=== PATIENT | female | born 1995 | race African-American/Black ===

== ENCOUNTER 2024-02-24 18:15 | Inpatient (IN) | payer OTHER ==
[2024-02-24] MEDS: ELECTROLYTE-148 SOLN 1,000 ML IV SCH (19:50)
[2024-02-24 19:52] VITALS: BMI 24.3
[2024-02-24 20:06] LABS: BASO % 0.3 % (0-2.0); HEMATOCRIT 36.5 % (32.4-45.2); HEMOGLOBIN 11.6 GM/dL (10.7-15.3); LYMPH % 17.5 % (8-40); MCH 24.5 pg (25.7-33.7); MCHC 31.8 g/dl (32.0-36.0); MEAN CELL VOLUME 77.1 fl (80-96); MEAN PLT VOLUME 7.9 fl (7.5-11.1); MONO % 7.2 % (3.8-10.2); PLATELET COUNT 332 10^3/uL (134-434); RBC 4.73 M/mm3 (3.60-5.2); RDW 15.4 % (11.6-15.6)
[2024-02-24 20:16] LABS: INR 0.92 (0.83-1.09); PROTHROMBIN TIME (PATIENT) 10.4 SEC (9.7-13.0)
[2024-02-24 20:19] LABS: ACTIVATED PTT 26.6 SECONDS (25.2-36.5)
[2024-02-24] MEDS ORDERED: FENTANYL/BUPIVACAINE/NS/PF - PCEA - 50 ML DISP.SYRIN EP ONE (20:23)
[2024-02-24 20:24] LABS: POTASSIUM 4.2 mmol/L (3.5-5.1)
[2024-02-24 20:25] LABS: CALCIUM 9.5 mg/dL (8.5-10.1)
[2024-02-24 20:26] LABS: BLOOD UREA NITROGEN 9.2 mg/dL (7-18)
[2024-02-24 20:29] LABS: CREATININE 0.7 mg/dL (0.55-1.3)
[2024-02-24] MEDS ORDERED: NALOXONE HCL 0.4 MG/ML VIAL IVPUSH PRN (20:30)
[2024-02-24] MEDS ORDERED: ELECTROLYTE-148 SOLN 1,000 ML IV SCH (20:30)
[2024-02-24] MEDS: FENTANYL/BUPIVACAINE/NS/PF - PCEA - 50 ML DISP.SYRIN EP SCH (20:46)
[2024-02-25] MEDS ORDERED: FENTANYL/BUPIVACAINE/NS/PF - PCEA - 50 ML DISP.SYRIN EP ONE (00:33)
[2024-02-25] MEDS ORDERED: OXYTOCIN 20 UNITS in 0.9% NS 20 UNIT/1,000 ML INFUS.BAG IV ONE (00:39)
[2024-02-25] MEDS ORDERED: LIDOCAINE HCL/PF 2% SDV 5ML VIAL ONE ×2 (01:29→02:02)
[2024-02-25] MEDS ORDERED: FENTANYL CITRATE/PF 50 MCG/ML VIAL ONE ×2 (01:29→02:13)
[2024-02-25] MEDS ORDERED: ceFAZolin SODIUM 1 GM VIAL ONE (02:06)
[2024-02-25] MEDS ORDERED: METOCLOPRAMIDE HCL INJECTION 10 MG/2 ML VIAL ONE (02:06)
[2024-02-25] MEDS ORDERED: TRANEXAMIC ACID 1000 MG/10 ML VIAL ONE ×2 (02:06→02:57)
[2024-02-25] MEDS ORDERED: KETOROLAC TROMETHAMINE 30 MG/1 ML VIAL ONE (02:06)
[2024-02-25] MEDS ORDERED: DEXAMETHASONE SOD PHOSPHATE 4 MG/1 ML VIAL ONE (02:06)
[2024-02-25] MEDS ORDERED: OXYTOCIN 10 UNITS/ML VIAL ONE ×2 (02:06→02:56)
[2024-02-25] MEDS ORDERED: ONDANSETRON 4 MG/2 ML VIAL ONE (02:06)
[2024-02-25] MEDS ORDERED: morphine SULFATE/PF 1 MG/2 ML (2cc Syringe - QUVA) ONE (02:09)
[2024-02-25] MEDS ORDERED: METHYLERGONOVINE MALEATE 0.2 MG/1 ML AMP IM PRN (03:24)
[2024-02-25] MEDS ORDERED: ACETAMINOPHEN 1000 MG/100 ML BAG IVPB PRN (03:26)
[2024-02-25] MEDS: OXYTOCIN 20 UNITS in 0.9% NS 20 UNIT/1,000 ML INFUS.BAG IV SCH (03:30)
[2024-02-25] MEDS: CITRIC ACID/SODIUM CITRATE 30 ML UNIT-DOSE CUP PO ONE (04:04)
[2024-02-25 04:57] LABS: COCAINE, UR NEGATIVE (NEGATIVE); URINE BARBITURATES NEGATIVE (NEGATIVE); URINE BENZODIAZEPINES NEGATIVE (NEGATIVE)
[2024-02-25 04:58] LABS: METHADONE, UR NEGATIVE (NEGATIVE); PHENCYCLIDINE,URINE NEGATIVE (NEGATIVE)
[2024-02-25 06:04] VITALS: RESP 18
[2024-02-25 06:04] LABS: OPIATES, URI POSITIVE (NEGATIVE); URINE AMPHETAMINES NEGATIVE (NEGATIVE)
[2024-02-25 07:23] LABS: HEMATOCRIT 27.5 % (32.4-45.2); HEMOGLOBIN 8.9 GM/dL (10.7-15.3); MCH 24.9 pg (25.7-33.7); MCHC 32.4 g/dl (32.0-36.0); MEAN PLT VOLUME 7.9 fl (7.5-11.1); PLATELET COUNT 262 10^3/uL (134-434); RBC 3.57 M/mm3 (3.60-5.2); WHITE BLOOD COUNT 20.8 K/mm3 (4.0-10.0)
[2024-02-25 09:26] LABS: ANISOCYTOSIS 0; HELMET CELLS 0; HOWELL-JOLLY BODIES 0; MACROCYTOSIS 0; OVALOCYTE 0; ROULEAU 0; SICKELED CELLS 0; TARGET CELLS 0; TEAR DROP CELLS 0; TOXIC GRANULATION 0
[2024-02-25] MEDS: PRENATAL VITAMINS W/ FOLIC ACID TABLET (FP) PO SCH (09:32)
[2024-02-25] MEDS: FERROUS SO4 325 MG TABLET (FP) PO SCH (09:32)
[2024-02-25] MEDS: IBUPROFEN 800 MG/8 ML IJ IVPB PRN (09:33)
[2024-02-25] MEDS ORDERED: oxyCODONE HCL 5 MG TABLET PO PRN ×2 (15:24)
[2024-02-25] MEDS: IBUPROFEN 600 MG TABLET (FP) PO PRN (17:44)
[2024-02-25] MEDS: SIMETHICONE 80 MG TAB.CHEW (FP) PO PRN (23:19)
[2024-02-25] MEDS: SENNOSIDES/DOCUSATE COMBO (SENNA PLUS) TABLET (UD) PO PRN (23:19)
[2024-02-25] MEDS: ACETAMINOPHEN 325 MG TABLET (FP) PO PRN (23:19)
[2024-02-26] MEDS ORDERED: BISACODYL 10 MG SUPP.RECT RC PRN (03:24)
[2024-02-28 09:36] VITALS: BP 128/77; PULSE 88; TEMP 98.2
== END 2024-02-28 18:56 | disposition home or self-care (01) | DRG 540 ==
LOC: JDEL 18:15 → JLDR 19:20 → J3W 02-25 05:38
PROVIDERS: ADMIT Obstetrics & Gynecology; ATTEND Obstetrics & Gynecology
PROC: 10D00Z1 Extraction of Products of Conception, Low, Open Approach (ICD-10-PCS; principal; 2024-02-25)
DX: O76 Abnormality in fetal heart rate and rhythm complicating labor and delivery (principal); O77.0 Labor and delivery complicated by meconium in amniotic fluid; O69.1XX0 Labor and delivery complicated by cord around neck, with compression, not applicable or unspecified; Z3A.39 39 weeks gestation of pregnancy; Z37.0 Single live birth
CPT/HCPCS: 36415; 59025; 80048; 80307; 85025; 85610; 85730; 86780; 86850; 86900; 86901; 88307-TC; 94010